=== PATIENT | female | born 1970 | race Caucasian/White ===

== ENCOUNTER 2019-05-12 22:36 | Emergency (ER) | payer OTHER ==
[2019-05-13] MEDS: HYDROCODONE/APAP (5/325) TAB PO (02:11)
[2019-05-13] MEDS: KETOROLAC 15 MG INJ IM (02:11)
== END 2019-05-13 02:30 | disposition home or self-care (01) ==
LOC: E/R 22:36
DX: M25.562 Pain in left knee (principal); M19.90 Unspecified osteoarthritis, unspecified site; F17.210 Nicotine dependence, cigarettes, uncomplicated; E66.01 Morbid (severe) obesity due to excess calories; Z68.39 Body mass index [BMI] 39.0-39.9, adult
CPT/HCPCS: 73562; 81025; 93005; 93971; 96372; 99285-25